=== PATIENT | male | born 1965 | race Caucasian/White ===

== ENCOUNTER 2017-06-23 05:40 | Emergency (ER) | payer MEDICAID ==
[~2017-06-23] VITALS: Ht 185.4 cm; Wt 190.0 kg
[~2017-06-23 05:40] MED LIST: BACT2OIN TOP; BACT800T5 PO; CEPH500C3 PO; FURO1TAB93 PO; POTA20IN3 PO
[2017-06-23 05:54] VITALS: BP 188/93; PULSE 105; RESP 20; TEMP 97.8; O2SAT 97
[2017-06-23] MEDS ORDERED: CIPR0.2S EACH EAR (06:41)
--- NOTE | 2017-06-23 06:42 | PD ---
HPI Chief Complaint: Foreign Body Time Seen by Provider: 06:05 Travel History International Travel<30 days: No Contact w/Intl Traveler<30days: No Traveled to known affect area: No History of Present Illness HPI The patient is a 52 year old male who presents to the [facility] emergency department with a history of awakening around 5 AM with a sensation of something going in his right ear. He reports that he began to have pain and fluttering inside his ear which caused a headache. The patient is concerned that he has an insect in his ear. He denies any recent cough or congestion. He denies having any drainage from his ears. On review of systems otherwise, he denies having any recent fevers, neck pain, chest pain, shortness of breath, abdominal pain, vomiting, diarrhea, urinary symptoms, or neurologic symptoms. [facility] Past Medical History Narrative Medical The patient's past medical history is significant for obesity, diabetes mellitus , hypertension, chronic venous stasis. Cardiovascular Problems: Yes (HTN) Diabetes: Yes (DM type 2 ) Patient Takes Glucophage: No Hypertension: Yes Integumentary: Yes (WOUNDS TO LEGS IN PAST) Immunizations Current: Yes Tetanus Vaccination: Unknown Influenza Vaccination: Yes Past Surgical History Narrative Surgical The patient's past surgical history is unremarkable Social History Alcohol Use: No Tobacco Use: No Substance Use: No Allergies-Medications (Allergen,Severity, Reaction): Coded Allergies: No Known Allergies (Verified Adverse Reaction, Unknown, 06/23/17) Reported Meds & Prescriptions Reported Meds & Active Scripts Active Amoxicillin 875 Mg Tab 875 Mg PO BID Hydrocodone-Acetaminophen 5-325 mg Tab 1 Tab PO Q6H PRN Ciprofloxacin Otic Drops 0.2% Soln 0.25 Ml EACH EAR BID 7 Days Potassium Chloride inj (Potassium Chloride) 20 Meq Pow 20 Meq PO DAILY 10 Days Lasix (Furosemide) 40 Mg Tab 40 Mg PO DAILY 10 Days Bactrim DS (Sulfamethoxazole-Trimethoprim DS) 1 Tab Tab 1 Tab PO Q12 10 Days Keflex (Cephalexin Monohydrate) 500 Mg Cap 500 Mg PO Q6 10 Days Bactroban 2% Oint (22 gm) (Mupirocin) 22 Gm Oint 2 % TOP BID 10 Days APPLY TO AFFECTED AREAS Review of Systems Except as stated in HPI: all other systems reviewed are Neg General / Constitutional: No: Fever Eyes: No: Visual changes HENT: Positive: Earache, No: Headaches, Rhinorrhea, Congestion, Other Cardiovascular: No: Chest Pain or Discomfort Respiratory: No: Shortness of Breath Gastrointestinal: No: Abdominal Pain Genitourinary: No: Dysuria Musculoskeletal: No: Pain Skin: No Rash Neurologic: No: Weakness Psychiatric: No: Depression Endocrine: No: Polydipsia Hematologic/Lymphatic: No: Easy Bruising Physical Exam Narrative General: The patient is a well-developed well-nourished male, uncomfortable appearing on examination, holding his right ear. Head and Neck exam: Head is normocephalic atraumatic. Eyes: EOMI, pupils are equal round and reactive to light. Ears: On examination of the left ear, dependent membrane is unremarkable, external auditory canal shows no signs of erythema or drainage. On examination of the right ear, inside the external auditory canal is a large appearing insect. This is down near the tympanic membrane. There is movement noted. Nose: Midline septum with pink mucous membranes Mouth: Dentition unremarkable. Moist mucus membranes. Posterior oropharynx is not erythematous. No tonsillar hypertrophy. Uvula midline. Airway patent. Neck: No palpable lymphadenopathy. No nuchal rigidity. No thyromegaly. Cardiovascular: Regular rate and rhythm without murmurs, gallops, or rubs. Lungs: Clear to auscultation bilaterally. No wheezes, rhonchi, or rales. Abdomen: Soft, without tenderness to palpation in all 4 quadrants of the abdomen. No guarding, rebound, or rigidity. Normal bowel sounds are audible. No tenderness on palpation of McBurney's point. Extremities: No clubbing or cyanosis. The patient has trace to 1+ pitting edema bilateral lower extremities. 2+ pulses in all 4 extremities. No calf tenderness on palpation. Back: No costovertebral angle tenderness to palpation. Neurologic Exam: Grossly nonfocal. Skin Exam: No rash noted. Intact skin that is warm and dry. Data Data Last Documented VS Vital Signs Date Time Temp Pulse Resp B/P (MAP) Pulse Ox O2 Delivery O2 Flow Rate FiO2 06/23/17 05:54 97.8 105 20 188/93 (124) 97 Room Air Orders Orders Ear Irrigation (06/23/17 06:31) Acetaminophen (Tylenol) (06/23/17 07:00) Amoxicillin (Trimox) (06/23/17 07:00) [facility] Medical Decision Making Medical Screen Exam Complete: Yes Emergency Medical Condition: Yes Medical Record Reviewed: Yes Differential Diagnosis Otitis externa, versus foreign body in the external auditory canal, versus tympanic membrane rupture Narrative Course During the course of the patient's emergency department visit, the patient's history, examination, and differential diagnosis were reviewed with the patient. The patient was placed on a band edger with oximetry and frequent blood pressure monitoring. The patient had 2% lidocaine topically placed in the ear canal. No further movement from the insect was noted by the patient. The patient's ear was then irrigated. On reexamination of the patient's ear and tympanic membrane, no visible rupture is noted. There is irritation of the canal. The insect still appears to be down near the tympanic membrane. There is no further movement. Further irrigation will be attempted for gentle removal. Irrigation was able to remove the insect within reach of the alligator forceps. The alligator forceps was used to remove the body of the insect. Reexamination of the patient 's ear reveals erythema of the tympanic membrane and a suspicious area for TM rupture. The patient is instructed regarding the importance of following up with an ceramic research engineer. He is instructed to keep his ears dry except for using his eardrops. The patient is additionally given a prescription for pain medication and oral antibiotic. The patient is resting comfortably and feels better, is alert and in no distress. The patient's results and examination findings were discussed with the patient. The repeat examination is unremarkable and benign. The history, exam, diagnostic testing, and current condition do not suggest any significant pathology to warrant further testing, continued ED treatment, admission, or surgical evaluation at this point. The vital signs have been stable. The patient does not have uncontrollable pain, intractable vomiting, or other significant symptoms. The patient's condition is stable and appropriate for discharge. The patient will pursue further outpatient evaluation with a primary care physician or other designated or consulting physician as indicated in the discharge instructions. The patient expressed understanding and was agreeable with this plan. Diagnosis Primary Impression: Foreign body of ear, right Qualified Codes: T16.1XXA - Foreign body in right ear, initial encounter Additional Impression: Ruptured tympanic membrane Qualified Codes: H72.91 - Unspecified perforation of tympanic membrane, right ear Referrals: Josse De Leon MD call for appointment Patient Instructions: Ear Foreign Body (ED), General Instructions, Ruptured Eardrum (ED) Med/Other Pt SpecificInfo: Prescription(s) given Scripts Amoxicillin (Amoxicillin) 875 Mg Tab 875 MG PO BID for Infection, #19 TAB 0 Refills Prov: Maryse Etienne MD 06/23/17 Hydrocodone-Acetaminophen (Hydrocodone-Acetaminophen) 5-325 mg Tab 1 TAB PO Q6H Y for PAIN, #12 TAB 0 Refills Prov: Maryse Etienne MD 06/23/17 Ciprofloxacin Otic Drops (Ciprofloxacin Otic Drops) 0.2% Soln 0.25 ML EACH EAR BID for Infection for 7 Days, #1 BOX 0 Refills Prov: Maryse Etienne MD 06/23/17 Disposition: 01 DISCHARGE HOME Condition: Stable Maryse Etienne MD Jun 23, 2017 06:42
[2017-06-23] MEDS ORDERED: HYDR-3516 PO (06:59)
[2017-06-23] MEDS ORDERED: AMOX875T PO (06:59)
[2017-06-23] MEDS ORDERED: AMOXICILLIN 875 MG TAB PO ONE (07:00)
[2017-06-23] MEDS ORDERED: ACETAMINOPHEN 325 MG TAB PO ONE (07:00)
== END 2017-06-23 07:15 | disposition home or self-care (01) ==
LOC: NEPC 05:40
DX: T16.1XXA Foreign body in right ear, initial encounter (principal); S09.21XA Traumatic rupture of right ear drum, initial encounter; I10 Essential (primary) hypertension; E11.9 Type 2 diabetes mellitus without complications; E66.9 Obesity, unspecified; X58.XXXA Exposure to other specified factors, initial encounter; Y92.003 Bedroom of unspecified non-institutional (private) residence as the place of occurrence of the external cause
CPT/HCPCS: 69200